=== PATIENT | female | born 1955 | race Caucasian/White ===

== ENCOUNTER 2016-05-23 08:55 | Emergency (ER) | payer OTHER ==
[2016-05-23 09:20] VITALS: BP 113/69; PULSE 87; RESP 16; TEMP 99.1; O2SAT 93
--- NOTE | 2016-05-23 09:39 | DX ---
Upright PA and Lateral Chest, 2 Views Total, at 9:14 a.m. Clinical History: 60-year-old female with a cough, chills, and fatigue. ICD 10 Diagnostic Code: R05. Comparison Study: None. Findings: There is mild perihilar bronchial wall thickening, which may reflect a virally-mediated bro nchitis. The cardiac and mediastinal silhouette size is normal. There is no focal alveolar consolidat ion, pleural effusion, peripheral interstitial edema, or pneumothorax. There is minimal biapical pleu ral thickening. The osseous structures are notable for mild loss of height at a mid and lower thoraci c vertebral body level. A DEXA scan may be of benefit. There is an old healed left eighth posterior r ib fracture deformity. Impression: Features are consistent with bronchitis, with no focal pneumonia identified.
--- NOTE | 2016-05-23 09:47 | UCPHY ---
H & P Time Seen by Provider: 05/23/16 09:11 Patient Type: New HPI/ROS: HPI Achy, chills, cough. 60-year-old female by private vehicle. This patient reports that she has a recent history of sinusitis. She was on antibiotics for few weeks for this. This resolved. She reports that yesterday she started feeling achy with fever/ chills and a dry nonproductive cough. She also has felt fatigued. ROS: Constitutional: As above. Eyes: No discharge. No changes in vision. ENT: Mild sore throat. No nasal congestion or rhinorrhea. Respiratory: As above. No shortness of breath. Cardiac: No chest pain, no palpitations. Gastrointestinal: No abdominal pain, no vomiting, no diarrhea. Genitourinary: No hematuria. No dysuria or increased frequency with urination. Musculoskeletal: As above. Skin: No rashes. Neurological: No headache. No focal weakness or altered sensation. Past medical history: Denies any significant past medical history. Except noted. Social history: As above. Physical Exam: General Appearance: Alert, no distress. This patient is responding to questions appropriately and in full sentences. This patient appears well- hydrated and well-nourished. Eyes: Pupils equal and round no pallor or injection. No lid edema, erythema or injection. ENT, Mouth: Mucous membranes are moist. The pharyngeal tissues are unremarkable. No edema or swelling. No asymmetry suggestive of abscess. No erythema or exudates. Respiratory: There are no retractions, lungs are clear to auscultation with good air movement bilaterally. Cardiovascular: Regular rate and rhythm. No murmur. Neurological: Motor sensory function is grossly intact. Cranial nerves are normal. Gait is normal. Skin: Warm and dry, no rashes. Musculoskeletal: Neck is supple and nontender. No cervical lymphadenopathy. Extremities are symmetrical. All joints range without pain or impingement. Psychiatric: No agitation. No depression. Database: Influenza-positive. EKG: Imaging: Chest x-ray PA and lateral; the cardiac mediastinal silhouette is unremarkable. No evidence of infiltrate or pneumothorax. Bronchitis noted. No other acute cardiopulmonary disease process noted. Chronic muscular skeletal findings. Interpreted by me. Procedures: Emergency department course: Patient sent for chest x-ray from triage. After my evaluation, results of chest x-ray and influenza assays discussed. Patient started on Tamiflu, 75 mg, a at urgent care. She was also given 600 mg of ibuprofen. She will be prescribed this medication. Supportive care, ibuprofen dosing discussed with her. She feels comfortable going home. Follow-up and return to Urgent Care precautions discussed with her. All of her questions were answered. She was discharged in good condition. Differential Diagnosis: The differential diagnosis on this patient includes but is not limited to influenza, viral syndrome. Pneumonia, serious bacterial infection unlikely. This represents a partial list of diagnoses considered. These considerations are based on history, physical exam, past history, reassessment and diagnostic testing. Smoking Status: Never smoked Constitutional: Initial Vital Signs Temperature (C) 37.3 C 05/23/16 09:10 Heart Rate 87 05/23/16 09:10 Respiratory Rate 16 05/23/16 09:10 Blood Pressure 113/69 05/23/16 09:10 O2 Sat (%) 93 05/23/16 09:10 O2 Delivery Mode Room Air Allergies/Adverse Reactions: No Known Allergies Allergy (Unverified 05/23/16 09:17) Home Medications: Medication Instructions Recorded Oseltamivir Phosphate [Tamiflu 75 75 mg PO BID #10 cap 05/23/16 mg (RX)] Medical Decision Making - Data Points Laboratory Results: 05/23/16 09:20 Influenza Typ A,B (DFA) POSITIVE FOR FLU A H (NEGATIVE) Departure - Departure Disposition: Home, Routine, Self-Care Clinical Impression: Influenza Condition: Good Instructions: Influenza (ED) Additional Instructions: Read and follow provided instructions. Follow-up with your primary care physician in 1-2 days for re-evaluation. Take medication as prescribed. Ibuprofen dosin mg every 6 hours with meals for the next 3 days only. Return to the emergency department for worsening fever, cough, vomiting or other serious concerns. Referrals: VIC WILSON [Primary Care Provider] - As per Instructions Prescriptions: Oseltamivir Phosphate [Tamiflu 75 mg (RX)] 75 mg PO BID #10 cap - PQRS PQRS Measurement: Not applicable.
[2016-05-23] MEDS ORDERED: OSELTAMIVIR PHOSPHATE 75 MG CAP PO ONE (09:49)
[2016-05-23] MEDS ORDERED: IBUPROFEN 800 MG TAB PO ONE (09:49)
[2016-05-23] MEDS ORDERED: IBUPROFEN 600 MG TAB PO ONE (09:58)
[2016-05-23] MEDS ORDERED: IBUPROFEN 200 MG TAB PO ONE (09:58)
== END 2016-05-23 10:17 | disposition home or self-care (01) ==
LOC: CED 08:55
DX: J11.1 Influenza due to unidentified influenza virus with other respiratory manifestations (principal)
CPT/HCPCS: 71020-PO; 87400-PO; 99203-PO; G0463-PO